=== PATIENT | male | born 1950 | race Caucasian/White ===

== ENCOUNTER 2016-08-20 11:15 | Inpatient (IN) | payer OTHER ==
[~2016-08-20] VITALS: Ht 172.7 cm; Wt 92.2 kg
[~2016-08-20 11:15] MED LIST: ASPIR-LOW81 MG PO; ASPIRIN81 M2 PO; AZITHROMYCIN250 MG1 PO; BACLOFEN10 MG PO; BACTRIM,SEPT1 TABLET PO; BAYER CHEWABLE81 MG PO; BISACODYL5 MG PO; CARVEDILOL25 MG PO; CLOPIDOGREL75 MG PO; COREG25 M1 PO; COZAAR50 MG PO; CRANBERRY300 MG PO; CRANBERRY307 MG PO; CRESTOR40 MG PO; CRESTOR5 MG PO; CYANOCOBALAM1000 MCG PO; Colace PO; Coreg PO; DEXTROSE 50%50 ML IV; DIASTAT ACUDIA1 EAC1 PR; DILAUDID2 MG PO; DOCUSATE SODIU100 MG PO; DOXYCYCLINE HY100 MG PO; Dulcolax PO; ECOTRIN325 MG PO; ELIQUIS5 MG PO; ENDOCET 5-3251 EACH PO; FENOFIBRATE160 M1 PO; FERROUS SULFAT325 MG PO; FLOMAX0.4 MG PO; FORMULA E400 UNIT PO; GLIPIZIDE XL10 M1 PO; GLIPIZIDE10 MG PO; GLUCAGEN1 MG IM/SC; GLUCOPHAGE1000 MG PO; GLUCOTROL XL10 MG PO; HUMULIN R100 UNITS/ SC; Hydrodiuril,Oretic,E PO; IRON159 MG PO; IRON160 M1 PO; JANUVIA100 MG PO; K-TAB10 MEQ PO; LANTUS 3 M100 UNITS/ SC; LANTUS 3 M100 UNITS1 SC; LAXATIVE5 M1 PO; LEVEMIR100 UNIT/2 SC; LEVETIRACETAM500 MG PO; LO-DOSE ASPIRIN81 M1 PO; LOFIBRA,TRIGLI160 MG PO; LOPRESSOR50 MG PO; LOSARTAN POTASS50 MG PO; MACROBID100 MG PO; MICRO-K10 ME2 PO; MORGIDOX100 MG PO; MORPHINE SULFA1 DOSE IV; NITROSTAT0.4 MG SL; NOVOLOG PE100 UNITS/ SC; OMEPRAZOLE-BIC1 EAC1 PO; ONDANSETRON4 MG/2 ML IV; ONE-A-DAY ESSE1 EAC1 PO; PERCOCET 5/31 TABLET PO; PLAVIX75 MG PO; POLYETHYLENE GL17 GM PO; PRAVASTATIN SOD80 MG PO; PROTONIX40 MG PO; SALINE FLUSH 5 M5 ML IV; SENNA PLUS TAB1 EACH PO; SERTRALINE HCL50 MG PO; SODIUM POL15 GM/60 M PO; STOOL SOFTENER100 MG PO; TAMSULOSIN HCL0.4 MG PO; THERAGRAN1 TABLET PO; TYLENOL EXTRA500 MG PO; Tylenol Regular Stre PO; VITAMIN B-125000 MC1 PO; VITAMIN D-32000 UNI1 PO; VITAMIN D10000 UNIT PO; VITAMIN D2000 UNIT PO; VITAMIN E400 UNIT PO; Vitamin-E PO; ZANTAC150 MG PO; ZESTRIL,PRINIVI10 M1 PO; ZITHROMAX250 MG PO; ZOLOFT100 MG PO; [UNRECOGNIZED DRUG - OTHER] PO; celeXA PO
[2016-08-20 13:04] LABS: ADD MIUA? YES; BILIRUBIN NEGATIVE; BLOOD LARGE; COLOR YELLOW ((YELLOW)); GLUCOSE (STRIP) 150; KETONES NEGATIVE; LEUKOCYTES LARGE; NITRITE POSITIVE; PROTEIN (STRIP) 100; SPECIFIC GRAVITY 1.014 (1.000-1.030); UROBILINOGEN 0.2 MG/DL (0.2-1.0)
[2016-08-20 13:14] LABS: BACTERIA NONE SEEN /HPF; BUDDING YEAST 2+; EPITHELIAL CELLS NONE SEEN /HPF; MUCUS NONE SEEN /LPF; RED BLOOD CELLS TNTC /HPF (0-5); UCUL ADDED? YES; WHITE BLOOD CELLS TNTC /HPF (0-5)
[2016-08-20 13:53] LABS: HEMATOCRIT 34.3 % (38.0-50.0); MCH 27.4 PG (29.0-34.0); MCHC 32.7 G/DL (30.0-36.0); MCV 83.9 FL (86-99); MEAN PLAT.VOLUME 9.6 uM^3 (9.0-12.4); PLATELET COUNT 299 K/uL (156-360); RBC DIS.WIDTH-CV 13.3 % (11.8-14.6); RBC DIS.WIDTH-SD 40.6 % (39-53); RED BLOOD COUNT 4.09 M/uL (4.00-5.50); WHITE BLOOD COUNT 15.7 K/uL (4.1-10.2)
[2016-08-20 14:02] LABS: CHLORIDE 99 mEq/L (99-109); POTASSIUM 4.6 mEq/L (3.7-5.4); SODIUM 133 mEq/L (136-147)
[2016-08-20 14:04] LABS: GLUCOSE 248 mg/dL (70-99)
[2016-08-20 14:06] LABS: ANION GAP 10 MEQ/L (2-14); TOTAL BILIRUBIN 0.4 mg/dL (0.0-1.0)
[2016-08-20 14:08] LABS: ALKALINE PHOSPHATASE 61 IU/L (3-129); GFR ESTIMATE (CALCULATED) 40 mL/min/
[2016-08-20 14:09] LABS: UREA NITROGEN (BUN) 29 mg/dL (9-23)
[2016-08-20 14:11] LABS: LIPASE 164 U/L (1.0-51.0)
[2016-08-20 14:15] LABS: TROP-I INTERPRETATION NEGATIVE
[2016-08-20] MEDS ORDERED: LEXAPRO10 MG PO (14:27)
[2016-08-20] MEDS ORDERED: ENDOCET 5-3251 EACH PO (14:27)
[2016-08-20] MEDS ORDERED: SENNA LAXATIVE25 MG PO (15:04)
[2016-08-20] MEDS ORDERED: PROAIR HFA8.5 GM IH (15:05)
[2016-08-20] MEDS ORDERED: EXTRA STRENGTH500 M1 PO (15:05)
[2016-08-20] MEDS ORDERED: DAILY VITE1 EAC1 PO (15:05)
[2016-08-20] MEDS ORDERED: IMODIUM A-D2 M2 PO (15:06)
[2016-08-20] MEDS ORDERED: ZANTAC150 MG PO (15:06)
[2016-08-20 20:30] VITALS: BP 244/144
[2016-08-20 21:00] VITALS: BP 188/110; BP 224/110
[2016-08-20 21:25] VITALS: BP 202/113
[2016-08-20 22:00] VITALS: BP 180/97
[2016-08-20 22:15] VITALS: BP 170/101
[2016-08-21] VITALS (7 sets, daily range): BP systolic 130–182; BP diastolic 68–89
[2016-08-21 05:49] LABS: HEMATOCRIT 31.2 % (38.0-50.0); MCH 27.9 PG (29.0-34.0); MCHC 32.7 G/DL (30.0-36.0); MCV 85.2 FL (86-99); MEAN PLAT.VOLUME 10.5 uM^3 (9.0-12.4); PLATELET COUNT 300 K/uL (156-360); RBC DIS.WIDTH-CV 13.5 % (11.8-14.6); RBC DIS.WIDTH-SD 42.2 % (39-53); RED BLOOD COUNT 3.66 M/uL (4.00-5.50); WHITE BLOOD COUNT 14.1 K/uL (4.1-10.2)
[2016-08-21 06:38] LABS: ANION GAP 12 MEQ/L (2-14); CHLORIDE 99 MEQ/L (99-109); GFR ESTIMATE (CALCULATED) 46 mL/min/; POTASSIUM 3.9 MEQ/L (3.7-5.4); SAMPLE HEMOLYSIS CHECK 0; SAMPLE ICTERIC CHECK 0; SAMPLE LIPEMIA CHECK 0; SODIUM 135 MEQ/L (136-147); UREA NITROGEN (BUN) 28 mg/dL (9-23)
[2016-08-21 06:41] LABS: GLUCOSE 101 mg/dL (70-99)
[2016-08-21 11:08] LABS: TROP-I INTERPRETATION POSITIVE
[2016-08-21 11:09] LABS: TROPONIN-I 1.12 ng/mL (0.0-0.30)
[2016-08-21 14:53] LABS: POINT-OF-CARE METER ID UU13113675
[2016-08-21 19:25] LABS: TROP-I INTERPRETATION INDETERMINATE; TROPONIN-I 0.46 ng/mL (0.0-0.30)
[2016-08-22 00:20] VITALS: BP 122/52; BP 162/79
[2016-08-22 01:56] LABS: TROP-I INTERPRETATION POSITIVE; TROPONIN-I 1.19 ng/mL (0.0-0.30)
[2016-08-22 05:09] VITALS: BP 150/87
[2016-08-22 07:33] VITALS: BP 153/92
[2016-08-22 10:12] LABS: HEMATOCRIT 30.8 % (38.0-50.0); MCH 27.2 PG (29.0-34.0); MCHC 31.5 G/DL (30.0-36.0); MCV 86.3 FL (86-99); PLATELET COUNT 296 K/uL (156-360); RBC DIS.WIDTH-CV 13.4 % (11.8-14.6); RED BLOOD COUNT 3.57 M/uL (4.00-5.50); WHITE BLOOD COUNT 11.7 K/uL (4.1-10.2)
[2016-08-22 10:50] LABS: TROP-I INTERPRETATION POSITIVE; TROPONIN-I 5.57 ng/mL (0.0-0.30)
[2016-08-22 11:19] LABS: ANION GAP 11 MEQ/L (2-14); CHLORIDE 99 MEQ/L (99-109); GFR ESTIMATE (CALCULATED) 50 mL/min/; GLUCOSE 228 mg/dL (70-99); POTASSIUM 4.5 MEQ/L (3.7-5.4); SAMPLE HEMOLYSIS CHECK 0; SAMPLE ICTERIC CHECK 0; SAMPLE LIPEMIA CHECK 0; SODIUM 135 MEQ/L (136-147); UREA NITROGEN (BUN) 20 mg/dL (9-23)
[2016-08-22 13:03] VITALS: BP 124/74
[2016-08-22 13:27] LABS: TROP-I INTERPRETATION POSITIVE
[2016-08-22 15:23] VITALS: BP 128/75
[2016-08-22 16:32] LABS: POINT-OF-CARE METER ID UU13113698
[2016-08-22 20:21] VITALS: BP 173/89
[2016-08-23 00:19] VITALS: BP 189/95
[2016-08-23 01:45] VITALS: BP 155/81
[2016-08-23 05:26] VITALS: BP 160/87
[2016-08-23 07:19] VITALS: BP 134/86
[2016-08-23 08:11] LABS: POINT-OF-CARE USER ID NUTSLF44
[2016-08-23] MEDS ORDERED: LOPRESSOR25 MG PO (11:51)
== END 2016-08-23 12:45 | disposition left against medical advice (07) | DRG 871 ==
LOC: EME 11:15 → EDOF 15:25 → 4EAST 15:25
PROVIDERS: Hospitalist; Internal Medicine; Internal Medicine Cardiovascular Disease; Nurse Practitioner Family
DX: A41.9 Sepsis, unspecified organism (principal); I21.4 Non-ST elevation (NSTEMI) myocardial infarction; N13.2 Hydronephrosis with renal and ureteral calculous obstruction; I69.354 Hemiplegia and hemiparesis following cerebral infarction affecting left non-dominant side; E78.5 Hyperlipidemia, unspecified; G40.909 Epilepsy, unspecified, not intractable, without status epilepticus; E11.22 Type 2 diabetes mellitus with diabetic chronic kidney disease; I25.10 Atherosclerotic heart disease of native coronary artery without angina pectoris; N18.3 Chronic kidney disease, stage 3 (moderate); I48.0 Paroxysmal atrial fibrillation; Z95.5 Presence of coronary angioplasty implant and graft; I25.2 Old myocardial infarction; E11.51 Type 2 diabetes mellitus with diabetic peripheral angiopathy without gangrene; I49.3 Ventricular premature depolarization; D64.9 Anemia, unspecified; K21.9 Gastro-esophageal reflux disease without esophagitis; Z87.891 Personal history of nicotine dependence; Z87.442 Personal history of urinary calculi; I12.9 Hypertensive chronic kidney disease with stage 1 through stage 4 chronic kidney disease, or unspecified chronic kidney disease; N40.0 Benign prostatic hyperplasia without lower urinary tract symptoms
CPT/HCPCS: 71020; 74000; 74176; 76000; 80048; 80053; 81003; 82365 90; 82948; 83605; 83690; 84484; 85027; 87040; 87086; 93005; 99202; 99281; 99285; C1758; C1876; J0696; J1815; J1885; J2250; J2270; J2405; J3010; J7030; J7050; J7120

== ENCOUNTER 2017-06-19 13:49 | Emergency (ER) | payer OTHER ==
[~2017-06-19 13:49] MED LIST changes: +DAILY VITE1 EAC1 PO; +EXTRA STRENGTH500 M1 PO; +IMODIUM A-D2 M2 PO; +LEXAPRO10 MG PO; +LOPRESSOR25 MG PO; +PROAIR HFA8.5 GM IH; +SENNA LAXATIVE25 MG PO
== END 2017-06-19 16:48 ==
LOC: EME 13:49
DX: I21.9 Acute myocardial infarction, unspecified (principal); I10 Essential (primary) hypertension; E78.5 Hyperlipidemia, unspecified; I48.91 Unspecified atrial fibrillation; I25.2 Old myocardial infarction; Z95.9 Presence of cardiac and vascular implant and graft, unspecified
CPT/HCPCS: 80048; 81003; 82150; 83605; 83690; 84484; 85025; 85610; 85730; 86850; 86900; 86901; 87040; 92950; 93005; 99281; 99284; G0480; J0171; J0282; J3475